=== PATIENT | female | born 1985 | race Caucasian/White ===

== ENCOUNTER 2021-11-13 18:39 | Emergency (ER) | payer MEDICAID ==
[~2021-11-13] VITALS: Ht 157.5 cm; Wt 49.1 kg
[2021-11-13] MEDS ORDERED: normal saline 1000ML IV soln IVB ONE ×2 (20:20→21:30)
[2021-11-13] MEDS ORDERED: ondansetron/PF 4mg/2ml inj IV ONE ×2 (20:20→21:30)
[2021-11-13 20:36] LABS: BASOPHILS % (AUTO) 0.1 % (0-1); EOSINOPHILS % (AUTO) 0.1 % (0-6); HEMATOCRIT 42.4 % (35.0-45.0); HEMOGLOBIN 14.8 g/dl (12.0-16.0); LYMPHOCYTES # (AUTO) 0.6 X10'3 (1.1-4.8); MEAN CORPUSCULAR HEMOGLOBIN 34.4 PG (27.0-31.0); MEAN CORPUSCULAR HGB CONC 34.8 g/dL (33.0-36.5); MEAN CORPUSCULAR VOLUME 98.9 FL (78-98); MEAN PLATELET VOLUME 8.3 FL (7.4-10.4); MONOCYTES # (AUTO) 1.1 X10'3 (0-0.9); MONOCYTES % (AUTO) 13.6 % (2-12); NEUTROPHILS # (AUTO) 6.6 X10'3 (1.8-7.7); NEUTROPHILS % (AUTO) 79.2 % (42-75); PLATELET COUNT 218 X10'3 (140-440); RED BLOOD COUNT 4.29 X10'6 (4.20-5.60); RED CELL DISTRIBUTION WIDTH 13.1 % (11.5-14.5); WHITE BLOOD COUNT 8.4 X10'3 (4.5-11.0)
[2021-11-13 20:59] LABS: ALANINE AMINOTRANSFERASE 88 U/L (12-78); ALBUMIN 4.4 G/DL (3.4-5.0); ALBUMIN/GLOBULIN RATIO 0.9 (1.1-1.5); ALKALINE PHOSPHATASE 107 IU/L (46-116); ANION GAP 13 (8-16); ASPARTATE AMINO TRANSFERASE 97 U/L (10-37); BILIRUBIN,TOTAL 0.7 MG/DL (0.1-1.0); BLOOD UREA NITROGEN 8 MG/DL (7-18); BUN/CREATININE RATIO 8.5 (6.6-38.0); CALCIUM 9.6 MG/DL (8.5-10.1); CHLORIDE 96 MMOL/L (99-107); CREATININE 0.94 MG/DL (0.40-0.90); GLUCOSE 164 MG/DL (70-104); POTASSIUM 3.2 MMOL/L (3.5-5.1); SODIUM 134 MMOL/L (135-145); TOTAL CARBON DIOXIDE 25.1 MMOL/L (24-32); TOTAL PROTEIN 9.1 G/DL (6.4-8.2); eGFR 67 ML/MIN
[2021-11-13] MEDS ORDERED: magnesium 2GM in 50ml NS 50 ML IV ONE (21:30)
[2021-11-13] MEDS ORDERED: phenobarbital inj 260 MG in normal saline 100ml IV soln 100 ML IV ONE (21:30)
[2021-11-13] MEDS ORDERED: thiamine inj. 100 MG in normal saline 100ml IV soln 99 ML IV ONE (21:30)
[2021-11-13 21:52] LABS: ETHANOL < 0.010 GM/DL (0.0-0.010); MAGNESIUM 2.6 MG/DL (1.5-2.4)
[2021-11-13] MEDS ORDERED: GABA300C PO (22:53)
[2021-11-13] MEDS ORDERED: CHLO25CA10 PO (22:53)
[2021-11-13] MEDS ORDERED: chlordiazePOXIDE 25mg capsule PO ONE (22:55)
[2021-11-13 23:30] VITALS: BP 148/100
== END 2021-11-14 00:13 | disposition home or self-care (01) ==
LOC: ER 18:40
DX: S00.31XA Abrasion of nose, initial encounter (principal); F10.239 Alcohol dependence with withdrawal, unspecified; R56.9 Unspecified convulsions; Z72.89 Other problems related to lifestyle; Z79.899 Other long term (current) drug therapy; W19.XXXA Unspecified fall, initial encounter; Y93.89 Activity, other specified; Y92.89 Other specified places as the place of occurrence of the external cause; Y99.8 Other external cause status; Y90.0 Blood alcohol level of less than 20 mg/100 ml
CPT/HCPCS: 36415; 70450; 71045; 80053; 80320; 83735; 83880; 84484; 85025; 93005; 96361; 96365; 96366; 96368; 96375; 99285; J2405; J2560; J3411; J3475; J3490; J7030